=== PATIENT | male | born 1995 ===

== ENCOUNTER 2024-05-13 08:37 | Emergency (ER) | payer SELFPAY ==
[~2024-05-13] VITALS: Ht 170.2 cm; Wt 83.9 kg
[2024-05-13] MEDS ORDERED: Ketorolac Tromethamine 15mg Vial IM ONE (08:50)
== END 2024-05-13 10:07 | disposition home or self-care (01) ==
LOC: ER 08:37
DX: M71.9 Bursopathy, unspecified (principal)
CPT/HCPCS: 73562-RT; 96372; 99283-25; J1885